=== PATIENT | female | born 1960 | race Caucasian/White ===

== ENCOUNTER 2017-12-24 06:59 | Inpatient (IN) | payer OTHER, MEDICAID ==
[~2017-12-24] VITALS: Ht 162.6 cm; Wt 122.5 kg
[~2017-12-24 06:59] MED LIST: AMPICILLIN TRI500 MG PO; AUGMENTIN PO; BACTRIM DS TAB1 EACH PO; CARAFATE 1 GM TA1 G1 PO; CARVEDILOL25 MG PO; CATAPRES-TTS 10.1 MG PO; CIPRO250 M2 PO; CIPROFLOXACIN500 M1 PO; CLEOCIN HCL300 MG; CLONIDINE0.1 PO; COREG CR20 MG PO; DIFLUCAN200 MG PO; ERGOCALCIF50000 UNIT; FERROUS GLUCON325 M4 PO; FLEXERIL; FLONASE 0.05%50 MCG NASAL; FLUCONAZOLE 10100 MG PO; FUROSEMIDE 80 M80 M1; FUROSEMIDE 80 M80 M1 PO; HUMALOG100 UNIT/1 SUBQ; IMDUR 30 MG TAB30 M1 PO; IMODIUM MULTI-1 EACH PO; LANTUS; LEVEMIR100 UNIT/1 SQ; LIDODERM 5%1 PATC1 TOP; LISINOPRIL10 MG PO; LOVAZA1000 MG PO; MACROBID 100 M100 M1; MACROBID 100 M100 M1 PO; MAG-OX 400 TAB400 M1 PO; NEXIUM40 MG PO; NITROSTAT0.4 MG PO; NOVOLOG MI100 UNIT/2 SUBQ; NOVOLOG100 UNIT/1; NYSTATIN15 GM TP; PERCOCET PO; PHENERGAN 25 MG25 M1 PO; POTASSIUM CHLO10 ME1 PO; PROMETHAZINE-C120 ML PO; RANEXA 500 MG500 M1 PO; ROBAXIN500 MG; ROBAXIN500 MG PO; SYNTHROID300 MCG; SYNTHROID300 MCG PO; VICODIN 5-5001 EACH PO; ZETIA10 MG; vitamin d
[2017-12-24] MEDS ORDERED: VITAMINC500 PO (07:14)
[2017-12-24] MEDS ORDERED: UNICOMPLEX M TA1 TA1 PO (07:14)
[2017-12-24] MEDS ORDERED: CLARITIN10 MG PO (07:14)
[2017-12-24] MEDS ORDERED: FLOVENT HFA 4444 MCG INH (07:15)
[2017-12-24] MEDS ORDERED: MAGNESIUM400 M1 PO (07:15)
[2017-12-24] MEDS ORDERED: ROCALTROL0.25 MCG PO (07:16)
[2017-12-24] MEDS ORDERED: ENBRACE HR SOF1 EACH PO (07:17)
[2017-12-24] MEDS ORDERED: VANCOCIN 125 M125 M1 PO (07:17)
[2017-12-24 07:32] LABS: ABSOLUTE BASOPHILS 0.1 thou/uL (0.0-0.2); ABSOLUTE EOSINOPHILS 0.1 thou/uL (0.0-0.7); ABSOLUTE LYMPHOCYTES 2.7 thou/uL (0.8-5.3); ABSOLUTE MONOCYTES 1.2 thou/uL (0.0-1.2); ABSOLUTE NEUTROPHILS 15.6 thou/uL (1.6-8.1); BASOPHILS 0.7 %; EOSINOPHILS 0.4 %; HEMATOCRIT 25.6 % (37.0-47.0); HEMOGLOBIN 7.6 gm/dL (12.0-15.0); LYMPHOCYTES 13.7 %; MCH 25.5 pg (26.0-34.0); MCHC 29.7 g/dL (28.0-37.0); MCV 85.7 fL (80.0-100.0); MONOCYTES 6.1 %; MPV 7.1 fl. (7.2-11.1); NUCLEATED RBCS 0 /100WBC; PLATELET COUNT* 372 thou/uL (150-400); POLYS 79.1 %; RBC 2.99 mil/uL (4.20-5.00); RDW-CV 17.4 % (10.5-14.5); WBC 19.8 thou/uL (4.0-11.0)
[2017-12-24 07:35] LABS: URINE BILIRUBIN NEGATIVE (Negative); URINE BLOOD TRACE (Negative); URINE CLARITY CLEAR; URINE COLOR YELLOW; URINE GLUCOSE-RANDOM NEGATIVE (Negative); URINE KETONES NEGATIVE (Negative); URINE NITRITE-REFLEX NEGATIVE (Negative); URINE PROTEIN 2+ (Negative); URINE SPECIFIC GRAVITY 1.015 (1.005-1.030); URINE UROBILINOGEN 0.2 E.U./dl (0.2-1.0)
[2017-12-24 07:36] LABS: URINE LEUKOCYTES-REFLEX 2+ (Negative)
[2017-12-24 07:49] LABS: BACTERIA-REFLEX 1-9 Few /HPF (None Seen); MUCUS 4-6 Moderate strn/LPF (None Seen); SQUAMOUS 4-10 Moderate /LPF (0-3); URINE RBC 0-2 Rare /HPF (0-2)
[2017-12-24 07:50] LABS: AMORPHOUS URATES Few /LPF (None Seen); CASTS None Seen /LPF (None Seen)
[2017-12-24 08:02] LABS: ANION GAP 9 mmol/L (7-16); BUN 60 mg/dL (7-18); CALCIUM 8.6 mg/dL (8.5-10.1); CHLORIDE 104 mmol/L (98-107); CO2 24 mmol/L (21-32); CREATININE 2.9 mg/dL (0.6-1.3); GLUCOSE 107 mg/dL (70-99); POTASSIUM 4.2 mmol/L (3.5-5.1); SODIUM 137 mmol/L (136-145)
[2017-12-24 08:11] LABS: ALBUMIN 1.6 g/dL (3.4-5.0); ALKALINE PHOSPHATASE 154 U/L (46-116); LIPASE 36 U/L (73-393); SGOT 11 U/L (15-37); SGPT 8 U/L (30-65); TOTAL BILIRUBIN 0.4 mg/dL (<0.1-1.0); TOTAL PROTEIN 6.4 g/dL (6.4-8.2); TROPONIN-I LEVEL <0.06 ng/mL (<0.06)
--- NOTE | 2017-12-24 09:50 | NUR ---
AFTER DR. HARRISON'S CONSULT WITH THE PATIENT, HE ORDERED THAT THE PT BE PUT ON C.DIFF AND MRSA PRECAUTIONS. PT PLACED ON CONTACT PRECAUTIONS.
[2017-12-24 12:55] VITALS: BP 160/78
[2017-12-24 14:12] VITALS: BP 149/48
--- NOTE | 2017-12-24 14:45 | NUR ---
PATIENT CAME TO THE FLOOR FROM THE ER IN STABLE CONDITION. ROLDAN IS IN PLACE WELL COLOSTOMY. PATIENT WAS TRANSFERRED FROM ER CART TO THE BED WITH A SLIDE SHEET. ADMISSION ASSESSMENT AND EDUCATION DONE FOR PATIENT AND FAMILY. PICTURES TAKEN AND PLACED IN CHART. CALL LIGHT IS IN REACH FAMILY IS AT BEDSIDE AT THIS TIME. WILL CONTINUE TO MONITOR.
--- NOTE | 2017-12-24 18:14 | NUR ---
PATIENT IS ALERT AND ORIENTED SINCE ARRIVING FROM THE ER THIS AFTERNOON. SOME PAIN THAT IS CONTROLLED WITH IV PAIN MEDICINE. PATIENT IS NPO DID GIVE ORAL VANC WITH SMALL DRINK OF JUICE. ROLDAN IS IN PLACE AND COLOSTOMY IS DRAINING WELL. WOUND ON RIGHT BUTTOCK WAS PACKED IN ER. INSULIN HELD THIS EVENING DUE TO PATIENT BEING NPO AND BLOOD SUGAR OF 106. CALL LIGHT IS IN REACH, CALLS FOR HELP WHEN NEEDED AND FREQUENT TURNS DONE. WILL CONTINUE TO MONITOR.
[2017-12-24 20:58] VITALS: BP 154/54
[2017-12-25 00:27] VITALS: BP 158/48
[2017-12-25 04:31] LABS: ABSOLUTE BASOPHILS 0.1 thou/uL (0.0-0.2); ABSOLUTE EOSINOPHILS 0.1 thou/uL (0.0-0.7); ABSOLUTE LYMPHOCYTES 2.2 thou/uL (0.8-5.3); ABSOLUTE MONOCYTES 1.1 thou/uL (0.0-1.2); BASOPHILS 0.4 %; EOSINOPHILS 0.5 %; HEMATOCRIT 24.8 % (37.0-47.0); HEMOGLOBIN 7.2 gm/dL (12.0-15.0); LYMPHOCYTES 12.6 %; MCH 25.8 pg (26.0-34.0); MCHC 28.8 g/dL (28.0-37.0); MCV 89.3 fL (80.0-100.0); MONOCYTES 6.2 %; MPV 7.2 fl. (7.2-11.1); NUCLEATED RBCS 0 /100WBC; POLYS 80.3 %; RBC 2.78 mil/uL (4.20-5.00); RDW-CV 17.6 % (10.5-14.5); WBC 17.5 thou/uL (4.0-11.0)
[2017-12-25 04:32] LABS: PLATELET COUNT* 296 thou/uL (150-400)
[2017-12-25 04:49] LABS: CALCIUM 8.2 mg/dL (8.5-10.1); CREATININE 2.8 mg/dL (0.6-1.3); PHOSPHORUS* 4.1 mg/dL (2.5-4.9); POTASSIUM 4.3 mmol/L (3.5-5.1)
--- NOTE | 2017-12-25 06:19 | NUR ---
ASSESSMENT COMPLETE. PT SLEPT MOST OF THE NIGHT. PRN PAIN MEDICATION GIVEN TWICE DURING THE NIGHT. PT REPORTS IV DILAUDID "LASTED LONGER". PT IS ON 2L PER NC WITH [place] SATS. PT HAS BEEN NPO FOR POSSIBLE DRAIN PLACEMENT WITH IR TODAY FOR ABCESS/FLUID. PT GIVEN IV ZOSYN AND ZYVOX SCHEDULED. PT IS Q6 ACCUCHECK SINCE SHE IS NPO. PT TURNED Q2 HOURS FOR SKIN INTEGRITY. PT HAS OSTOMY AND ROLDAN IN PLACE. PT HAS IV IN LEFT AC, FLUIDS INFUSING. PT IS SLEEPING AT THIS TIME. SEE ASSESSMENT AND VITALS FOR OTHER DETAILS. CALL LIGHT WITHIN REACH, WILL CONTINUE PLAN OF CARE
[2017-12-25 08:42] VITALS: BP 140/70
--- NOTE | 2017-12-25 12:27 | NUR ---
SW met with pt to complete initial assessment, introduce self, and SW role. Pt alert and oriented. Pt was at SNF at [facility] and said that she would be open to returning for SNF if needed (and would need to obtain insurance approval again) but pt also hopeful that she could be well enough to be able to dc home with her sister. Pt is trying to get a new wheelchair, otherwise, pt has needed DME. SW to continue to follow to assist with safe dc planning.
[2017-12-25 14:05] VITALS: BP 142/68
--- NOTE | 2017-12-25 16:10 | NUR ---
WOUND CARE NOTE: CONSULT RECEIVED FOR WOUND ON BUTTOCKS. PATIENT PRESENTS WITH AN UNSTAGEABLE PRESSURE ULCER TO HER COCCYX. WOUND BED WITH 100% YELLOW, MOIST, ADHERENT SLOUGH. FRANCESCO-WOUND WITH ECCHYMOSIS TO THE RIGHT SIDE. WOUND IS DRAINING MODERATE AMOUNTS OF YELLOW DRAINAGE. FOUL ODOR NOTED. PATIENT DOES HAVE SIGNIFICANT PAIN TO AREA DURING CLEANSING. WOUND MEASURES 3X3X1.5. PACKED WITH AQUACEL AG AND SECURED WITH BORDERED FOAM. PATIENT ALSO HAS AN UNSTAGEABLE PRESSURE ULCER TO THE RIGHT HEEL MEASURING 4X4. AREA IS HEALING. DARK ESCHAR COVERING WOUND BED, MAY HAVE BEEN A BLISTER AT ONE POINT. AREA IS DRY AND INTACT. NO FRANCESCO-WOUND REDNESS NOTED. EDUCATED PATIENT ON: NUTRITION FOR WOUND HEALING, BLOOD SUGAR CONTROL, AND OFFLOADING. PATIENT COMMUNICATED UNDERSTANDING TO ALL. RECOMMEND TURN Q2 HOURS-KEEP OFF WOUND OFFLOAD HEEL WITH PILLOWS OR BOOT ENCOURAGE GOOD NUTRITION AND HYDRATION FOR WOUND HEALING DEBRIDEMENT OF COCCYX WOUND
--- NOTE | 2017-12-25 18:13 | NUR ---
PATIENT HAS BEEN SLEEPING MOST OF THE DAY, HAS COMPLAINED OF PAIN WHEN WOKEN UP. IV IN LEFT AC WORKS WELL FOR ANTIBIOTICS WHEN PATIENT KEEPS ARM STRAIGHT. WOUND DRESSING WAS CHANGED AND PACKED TODAY. COLOSTOMY AND ROLDAN DRAINING WELL TODAY. VITAL SIGNS HAVE BEEN STABLE. FAMILY AT BEDSIDE THIS AFTERNOON. PATIENT REQUESTING PILLS TO BE CRUSHED, EXPLAINED THAT PAIN MEDICINE CAN NOT BE CRUSHED SO BROKE THEM IN HALF AND GAVE WITH JELLO PATIENT DID WELL WITH THAT. CALL LIGHT IS IN REACH, WILL CONTINUE TO MONITOR.
[2017-12-25 20:00] VITALS: BP 156/57
--- NOTE | 2017-12-26 04:53 | NUR ---
ASSUMED CARE OF PT AT 1900 PT ALERT AND ORIENTED X4 VS AND ASSESSMENT STABLE. PT QUESTIONED NURSE ABOUT MEDICATIONS PT ASKED " CAN YOU TELL ME IF I GOT MY MEDICATIONS DURING THE DAY?" I INFORMED PT THAT ID HAVE TO LOOK AT HER MAR AND LET HER KNOW WHEN I RETURNED WITH HER EVENING MEDS PT AGREED. RETURNED WITH MEDS AND INFORMED PT OF ALL THE MEDS SHE HAD BEEN GIVEN PT SATISFIED GAVE PRN OXY AT 2028. PT THEN CALLED OUT AND STATED IT WASNT WORKING PAGED DOCTOR AND OBTAINED ORDERS FOR TRAMADOL. BROUGHT TRAMADOL AND FLEXARIL IN AND PT STATED " IT DOESNT WORK BUT ILL TRY IT"PT THEN SLEPT AFTER THAT UNTIL HER NEBULIZER AND CALLED OUT FOR MORE PAIN MEDS GAVE PRN NAPROXEN THEN PT SLEPT UNTIL 244 AND ASKED FOR SLEEPING MED I ENTERED THE ROOM AND THE PT WAS ALREADY ASLEEP AND ME ENTERING WOKE HER UP I TOLD PT SHE DIDNT HAVE ANYTHING ORDERED AND SHE WAS STARTING TO FALL ASLEEP SO WE COULD TRY A WARM BLANKET TURNING THE LIGHTS AND TV OUT AND SEE IF THAT WOULD HELP PT AGREED. NO FURTHER COMPLAINTS. WILL CONTINUE PLAN OF CARE.
--- NOTE | 2017-12-26 05:13 | NUR ---
ASSUMED CARE OF PT AT 1900 PT ALERT AND ORIENTED X4 VS AND ASSESSMENT STABLE. PT RECIEVED PAIN MEDS ONCE AND THEN SLEPT THROUGH THE NIGHT TURNED AND POSITIONED Q2H. WILL CONTINUE PLAN OF CARE
[2017-12-26 05:20] LABS: HEMATOCRIT 25.2 % (37.0-47.0); HEMOGLOBIN 7.4 gm/dL (12.0-15.0); MCH 25.8 pg (26.0-34.0); MCHC 29.5 g/dL (28.0-37.0); MCV 87.5 fL (80.0-100.0); MPV 7.1 fl. (7.2-11.1); NUCLEATED RBCS 0 /100WBC; PLATELET COUNT* 343 thou/uL (150-400); RBC 2.88 mil/uL (4.20-5.00); RDW-CV 17.5 % (10.5-14.5); WBC 22.8 thou/uL (4.0-11.0)
[2017-12-26 06:07] LABS: ABSOLUTE LYMPHOCYTES 2.5 thou/uL (0.8-5.3); ABSOLUTE MONOCYTES 0.7 thou/uL (0.0-1.2); ABSOLUTE NEUTROPHILS 19.6 thou/uL (1.6-8.1); ANISOCYTOSIS 1+; HYPOCHROMASIA 1+; PLATELET ESTIMATE ADEQUATE; POIKILOCYTOSIS 1+; POLYCHROMASIA 1+; TOXIC GRANULATION 1+
[2017-12-26 06:24] LABS: CALCIUM 8.6 mg/dL (8.5-10.1); CREATININE 2.8 mg/dL (0.6-1.3); MAGNESIUM 1.6 mg/dL (1.8-2.4); PHOSPHORUS* 3.4 mg/dL (2.5-4.9)
--- NOTE | 2017-12-26 07:40 | NUR ---
SPOKE WITH DR LEES REGARDING CT SCAN ORDER AND ELEVATED BUN/CREATININE. DR LEES WILL SPEAK WITH CT REGARDING ORDERS.
[2017-12-26 07:44] VITALS: BP 142/74; BP 148/100
--- NOTE | 2017-12-26 14:40 | NUR ---
WAS ASKED TO ARRANGE TRANSFER TO [facility] FOR SURGERY CONSULT, PER DR LEES NEEDS A MESH WE DO NOT HAVE AND MAY NEED ENT ALSO WELL ICU POST OP. PT AWARE AND AGREES. DR LEES SPOKE WITH DR HARRISON. CALLED AND FAXED CLINICAL INFO TO [facility] TRSF TEAM. AWAIT CALL BACK. CHART COPIED. CALL TO PT'S SISTER/BREANA CAMPUZANO TO UPDATE ON PLAN. SHE ASKED TO BE CALLED WITH DISPOSITION BREANA CAMPUZANO [phone] [facility] TRSF TEAM [phone] FAX [phone]
[2017-12-26 15:18] VITALS: BP 142/60
--- NOTE | 2017-12-26 18:19 | NUR ---
PATIENT HAS BEEN A/O X 4 THIS SHIFT. PATIENT MEDICATED FOR PAIN X 2 THIS SHIFT. PATIENT HAD REPEAT CT SCAN COMPLETED THIS SHIFT, RESULTS GIVEN TO SURGERY. PATIENT TURNED EVERY 2 HOURS, DRESSING CHANGED TO COCCYX THIS SHIFT. PATIENT HAS HAD HEELS ELEVATED OFF BED. CASE MANAGEMENT WORKING ON GETTING PATIENT TRANSFERRED TO [facility] FOR SURGERY. AWAITING CALL BACK FROM TRANSFER TEAM. PATIENT'S ROLDAN PATENT AND DRAINING. COLOSTOMY IN PLACE TO ABDOMEN. CONTINUES ON IV ANTIBIOTICS. REMAINS IN ISOLATION. FAMILY UPDATED. CALL LIGHT WITHIN REACH. WILL CONTINUE WITH PLAN OF CARE.
[2017-12-26 20:00] VITALS: BP 193/84
[2017-12-27 00:31] VITALS: BP 188/62
[2017-12-27 04:05] VITALS: BP 149/42
[2017-12-27 04:31] LABS: ABSOLUTE BASOPHILS 0.1 thou/uL (0.0-0.2); ABSOLUTE LYMPHOCYTES 2.8 thou/uL (0.8-5.3); ABSOLUTE MONOCYTES 1.5 thou/uL (0.0-1.2); ABSOLUTE NEUTROPHILS 28.4 thou/uL (1.6-8.1); BASOPHILS 0.4 %; EOSINOPHILS 0.1 %; HEMOGLOBIN 7.9 gm/dL (12.0-15.0); LYMPHOCYTES 8.6 %; MCH 25.2 pg (26.0-34.0); MCHC 29.2 g/dL (28.0-37.0); MCV 86.5 fL (80.0-100.0); MONOCYTES 4.4 %; MPV 7.6 fl. (7.2-11.1); NUCLEATED RBCS 0 /100WBC; PLATELET COUNT* 332 thou/uL (150-400); POLYS 86.5 %; RBC 3.12 mil/uL (4.20-5.00); RDW-CV 17.8 % (10.5-14.5); WBC 32.8 thou/uL (4.0-11.0)
--- NOTE | 2017-12-27 05:15 | NUR ---
ASSUMED CARE OF PT AT 1900 PT ALERT AND ORIENTED X 4 PT C/O OF CHEST PAIN AT 1930 I WENT IN TO SEE PT AND PT STATED THAT IT WASNT HER CHEST IT WAS HER UPPER BACK AND SHE REQUESTED PAIN MEDS. NOTIFIED DR HARRISON OF BACK PAIN ELEVATED BP AND TEMP 100.1. ONE TIME ORDER OF DILAUDID X1 PT SLEPT THROUGH THE NIGHT AFTER THAT TURNED AND POSITIONS Q2H. WILL CONTINUE PLAN OF CARE.
[2017-12-27 05:35] LABS: CALCIUM 8.5 mg/dL (8.5-10.1); CREATININE 2.6 mg/dL (0.6-1.3); MAGNESIUM 1.6 mg/dL (1.8-2.4); PHOSPHORUS* 3.6 mg/dL (2.5-4.9); POTASSIUM 4.5 mmol/L (3.5-5.1)
[2017-12-27 08:10] VITALS: BP 154/59
--- NOTE | 2017-12-27 09:21 | NUR ---
RECEIVED CALL FROM 3W THAT PT WAS STILL NEEDING TRANSFERED TO [facility]. PER SHIRIN,RN, [facility] TRSF TEAM CALLED BACK LAST NIGHT AND STATED THE INSPECTOR BOILER WOULD REVIEW TODAY. CALL TO [facility] TRSF TEAM/EDY AT 0815, SHE STATED THAT THEY WERE REVIEWING THE CASE AND HAD NOT ACCEPTED PT YET. WILL NEED TO WAIT FOR 'BED HUDDLE' AT 9AM. UPDATED DR LEES AND DR HARRISON. OK TO WAIT FOR ANSWER AT 9AM. DID CALL EDY BACK AND STRESS URGENCY OF TRSF PER DR LEES. CALL BACK TO [facility] TRSF TEAM AT 0900, SPOKE WITH EDY, SHE STATED THAT THEY WERE STILL PENDING WITH THE CASE AND BEDS WERE FULL AT [facility]. THEY WILL CONTINUE TO WORK ON IT. CALL TO TRSF TEAM/IL[facility] AT 0913, GAVE INFO AND DR LEES'S NUMBER FOR THEIR TRIAGE NURSE TO CALL. DR LEES AWARE UPDATED SHIRIN,RN ALSO AWAIT CALL BACK
--- NOTE | 2017-12-27 11:20 | NUR ---
DISCUSSED FURTHER WITH DR LEES AND SURGERY MGR/MABLE. CONCERN BY ANESTHESIA FOR PT TO HAVE SURGERY HERE, REQUESTING STILL WORK ON TRSF TO HIGHER LEVEL OF CARE. DR LEES ASKED THAT WE CONSIDER [facility]. [place]SO [facility] [place] SPOKE WITH [facility] AGAIN RE: POSSIBILITY OF OTHER HOSPITAL IN THEIR NETWORK. WILL PURSUE
--- NOTE | 2017-12-27 11:21 | NUR ---
SPOKE WITH [facility], SHE WAS CONNECTED WITH DR LEES. HE SPOKE WITH THE SURGEON AND THEN DR CLEARY WHO HE STATED ACCEPTED THE PT. AWAIT CALL BACK FROM [facility] TEAM. NERISSA CARPIO UPDATED PT'S SISTER BREANA AND DR LEES TO TALK WITH PT. CHART COPIES UPDATED
--- NOTE | 2017-12-27 11:47 | NUR ---
REPORT CALLED TO NERISSA JACOBSON AT AT THIS TIME. AWAITING AMBULANCE FOR TRANSFER. CALLED AND UPDATED PATIENT'S SISTER BREANA REGARDING TRANSFER AND GAVE INFORMATION OF ROOM NUMBER. PATIENT INFORMED OF THE ABOVE. REFUSING TO HAVE DRESSING TO COCCYX CHANGED AT THIS TIME DUE TO PAIN, ALSO REFUSED TO HAVE PICTURES OF COCCYX AND HEEL DUE TO PAIN.
--- NOTE | 2017-12-27 14:00 | NUR ---
SPOKE WITH [facility] AGAIN, THEY REQUIRED A SECOND FORM BE SIGNED. ALSO SPOKE WITH COMPLIANCE OFFICE/[place] TO HELP WITH ARRANGING FOR AMBULANCE. WHEN CALLED BACK, WAS TOLD THAT THE NEXT AMBULANCE WOULD BE DISPATCHED FOR PT
--- NOTE | 2017-12-27 15:28 | NUR ---
AMBULANCE HERE TO TRANSPORT PATIENT TO [facility]. FAMILY UPDATED. PATIENT DISCHARGED VIA AMBULANCE. ESCORTED OFF NURSING UNIT WITH AMBULANCE STAFF.
--- NOTE | 2017-12-27 15:42 | NUR ---
I HAVE REVIEWED THE DOCUMENTATION BY TAMY TAO, STUDENT NURSE. I AGREE WITH THE DOCUMENTED INTERVENTIONS AND ASSESSMENTS. UPDATED KAVON AT [facility] THAT PATIENT HAS BEEN DISHCARGED AND PATIENT IS IN TRANSPORT.
== END 2017-12-27 15:30 | disposition short-term general hospital (02) | DRG 871 ==
LOC: M.ERS 06:59 → M.TBA-ER 09:08 → M.3W 09:08
PROVIDERS: Emergency Medicine; Surgery; ADMIT Internal Medicine
DX: A41.9 Sepsis, unspecified organism (principal); K63.1 Perforation of intestine (nontraumatic); N18.4 Chronic kidney disease, stage 4 (severe); Z68.42 Body mass index [BMI] 45.0-49.9, adult; N17.9 Acute kidney failure, unspecified; E44.0 Moderate protein-calorie malnutrition; N39.0 Urinary tract infection, site not specified; E11.42 Type 2 diabetes mellitus with diabetic polyneuropathy; M19.90 Unspecified osteoarthritis, unspecified site; K52.9 Noninfective gastroenteritis and colitis, unspecified; I25.10 Atherosclerotic heart disease of native coronary artery without angina pectoris; E66.01 Morbid (severe) obesity due to excess calories; E11.319 Type 2 diabetes mellitus with unspecified diabetic retinopathy without macular edema; I12.9 Hypertensive chronic kidney disease with stage 1 through stage 4 chronic kidney disease, or unspecified chronic kidney disease; L89.150 Pressure ulcer of sacral region, unstageable; E11.22 Type 2 diabetes mellitus with diabetic chronic kidney disease; K43.5 Parastomal hernia without obstruction or gangrene; B96.20 Unspecified Escherichia coli [E. coli] as the cause of diseases classified elsewhere; Z95.2 Presence of prosthetic heart valve; I25.2 Old myocardial infarction; Z95.1 Presence of aortocoronary bypass graft; Z90.49 Acquired absence of other specified parts of digestive tract; Z85.038 Personal history of other malignant neoplasm of large intestine; Z98.42 Cataract extraction status, left eye; Z95.5 Presence of coronary angioplasty implant and graft; Z79.899 Other long term (current) drug therapy; Z88.1 Allergy status to other antibiotic agents; Z79.4 Long term (current) use of insulin; Z88.8 Allergy status to other drugs, medicaments and biological substances; Z89.422 Acquired absence of other left toe(s); Z90.710 Acquired absence of both cervix and uterus